=== PATIENT | male | born 1970 | race Caucasian/White ===

== ENCOUNTER → 2025-01-12 | Outpatient (REF) | payer OTHER ==
[~2025-01-12] MED LIST: HYDR-4468 PO; IBUP200T46 PO; LEVO100T5 PO
[2025-01-13 09:53] LABS: BASOPHILS 1 % (0-1); LYMPHOCYTES 14 % (16-44); MONOCYTES 1 % (0-5); NEUTROPHILS 84 % (28-66)
[2025-01-13 09:54] LABS: PLATELET ESTIMATE NORMAL (NORMAL)
== END ==
LOC: M LAB REF 08:38
PROVIDERS: ATTEND Internal Medicine
DX: D72.9 Disorder of white blood cells, unspecified (principal)

== ENCOUNTER → 2025-03-16 | Outpatient (CLI) | payer OTHER ==
[2025-03-16 12:43] LABS: PLATELET COUNT, AUTOMATED 151 10^3/uL (150-450)
[2025-03-16 13:01] LABS: FREE T4 1.9 NG/DL (0.89-1.76); LUTEINIZING HORMONE 0.1 mIU/ML (1.5-9.3)
[2025-03-19 10:07] LABS: TESTOSTERONE %FREE+WEAKLY BOUN 14.3 % (9.0-46.0); TESTOSTERONE FREE+WEAKLY BOUND <.4 ng/dL (40.0-250.0); TESTOSTERONE TOTAL <3 ng/dL (264-916)
== END ==
LOC: M WUC 08:21
PROVIDERS: ATTEND Internal Medicine Endocrinology, Diabetes & Metabolism
DX: D35.2 Benign neoplasm of pituitary gland (principal); E23.0 Hypopituitarism

== ENCOUNTER → 2025-05-04 | Outpatient (CLI) | payer OTHER ==
[~2025-05-04] MED LIST changes: +PROHANCE 279.3MG/ML 5ML VIAL As Ordered ONE
== END ==
LOC: M RAD 15:09
PROVIDERS: ATTEND Neurological Surgery
DX: D35.2 Benign neoplasm of pituitary gland (principal)
CPT/HCPCS: 70553; A9576

== ENCOUNTER → 2025-05-19 | Outpatient (REF) | payer OTHER ==
[~2025-05-19] MED LIST changes: -PROHANCE 279.3MG/ML 5ML VIAL As Ordered ONE
== END ==
LOC: M LAB REF 12:38
PROVIDERS: ATTEND Internal Medicine
DX: E29.1 Testicular hypofunction (principal)